=== PATIENT | female | born 1945 | race Caucasian/White ===

== ENCOUNTER → 2018-04-02 | Outpatient (CLI) | payer MEDICARE, BC | LOC: COL.RAD 03-31 14:00 | DX: M25.551 Pain in right hip (principal) | CPT/HCPCS: J3301; Q9967 ==

== ENCOUNTER → 2019-02-01 | Outpatient (CLI) | payer MEDICARE, BC | LOC: COL.RAD 09:37 | DX: M25.551 Pain in right hip (principal) | CPT/HCPCS: J3301; Q9967 ==